=== PATIENT | male | born 1965 | race Caucasian/White ===

== ENCOUNTER 2017-07-08 19:28 | Outpatient (CLI) | payer OTHER | END 2017-07-08 19:29 | disposition critical access hospital (66) | LOC: EMS 19:28 | PROVIDERS: ATTEND Surgery | DX: R55 Syncope and collapse (principal); R53.1 Weakness; R61 Generalized hyperhidrosis | CPT/HCPCS: A0425; A0427 ==

== ENCOUNTER 2017-07-08 19:47 | Emergency (ER) | payer OTHER ==
--- NOTE | 2017-07-08 21:02 | ED Physician Documentation ---
PD HPI Fall - Stated complaint Stated Complaint: FALL - Chief complaint Chief Complaint: General - History obtained from History obtained from: Patient PD PAST MEDICAL HISTORY - Past Medical History Past Medical History: Yes Endocrine/Autoimmune: HyPOthyroidism - Past Surgical History Past Surgical History: Yes - Present Medications Home Medications: Ambulatory Orders Medication Instructions Recorded Confirmed Levothyroxine Sodium [Synthroid] 88 mcg PO DAILY 07/08/17 07/08/17 - Allergies Allergies/Adverse Reactions: Allergies Allergy/AdvReac Type Severity Reaction Status Date / Time No Known Drug Allergies Allergy Verified 07/08/17 19:55 - Social History Does the pt smoke?: No Smoking Status: Never smoker Does the pt have substance abuse?: No - Immunizations Immunizations are current?: Yes Results - Vitals Vitals: Vital Signs - 24 hr 07/08/17 19:52 Temperature 36.2 C L Heart Rate 74 Respiratory 18 Rate Blood Pressure 137/73 H O2 Saturation 100 Oxygen O2 Source Room air
[2017-07-08] MEDS ORDERED: SODIUM CHLORIDE 0.9% 1,000 ML IV ONE (21:32)
[2017-07-08] MEDS ORDERED: KETOROLAC 60 MG/2 ML VIAL IVP STA (21:32)
[2017-07-08] MEDS ORDERED: KETOROLAC 30 MG/ML VIAL ONE (21:43)
[2017-07-08 21:52] LABS: BASOPHILS # (AUTO) 0.1 10^3/uL (0.0-0.1); BASOPHILS % (AUTO) 0.9 %; EOSINOPHILS # (AUTO) 0.2 10^3/uL (0.0-0.7); EOSINOPHILS % (AUTO) 1.6 %; HGB - HEMOGLOBIN 15.6 g/dL (14.0-18.0); LYMPHOCYTES # (AUTO) 2.1 10^3/uL (1.5-3.5); LYMPHOCYTES % (AUTO) 16.1 %; MEAN CORPUSCULAR HEMOGLOBIN 30.4 pg (27.0-31.0); MEAN CORPUSCULAR HGB CONC 34.1 g/dL (32.0-36.0); MEAN CORPUSCULAR VOLUME 89.4 fL (80.0-94.0); MEAN PLATELET VOLUME 8.4 fL (7.4-11.4); MONOCYTES # (AUTO) 0.6 10^3/uL (0.0-1.0); MONOCYTES % (AUTO) 4.7 %; NEUTROPHILS # (AUTO) 10.2 10^3/uL (1.5-6.6); NEUTROPHILS % (AUTO) 76.7 %; RED BLOOD COUNT 5.14 10^6/uL (4.70-6.10); RED CELL DISTRIBUTION WIDTH 12.9 % (12.0-15.0); UNCORRECTED WHITE BLOOD COUNT 13.3 x10^3/uL; WHITE BLOOD COUNT 13.3 x10^3/uL (4.8-10.8)
[2017-07-08 22:03] LABS: ALBUMIN/GLOBULIN RATIO 1.3 (1.0-2.2); BILIRUBIN,TOTAL 0.6 mg/dL (0.2-1.0); CALCIUM 8.7 mg/dL (8.5-10.3); CREATININE 1.2 mg/dL (0.6-1.2); MAGNESIUM 2.3 mg/dL (1.7-2.8); POTASSIUM 3.6 mmol/L (3.5-5.0); TOTAL PROTEIN 7.5 g/dL (6.7-8.2)
[2017-07-08 22:27] VITALS: BP 119/79
--- NOTE | 2017-07-08 22:39 | ED Physician Documentation ---
PD HPI SYNCOPE - Stated complaint Stated Complaint: FALL - Chief complaint Chief Complaint: General - History obtained from History obtained from: Patient, EMS - History of Present Illness Witnessed: Unwitnessed Timing - onset: Today Duration: Unknown Preceding symptoms: Chest pain, Nausea / vomiting, Light headed, Other (left knee/thigh pain - he was at restaurant or such and felt pain medial thigh/knee feeling like muscle cramp. Has had that intermittently the past few weeks. He got up to go to the bathroom as he had to urinate as well. While urinating he felt lightheaded and weak. Washing hands he then next remembers awakening on the floor. He walked out back to friends and they said he looked pale. He had some feeling of pressure left breast area. EMS called. Normal ECG enroute. He had improved color enroute. Feeling okay on arrival except just generally tired. ) Associated symptoms: No: Incontinant of urine, Headache, Abdominal pain Contributing factors: Noxious stimulae (was having pain left thigh), Other (had just urinated). No: Recent med change, Decreased PO intake Injury occurred: No: Fell, Head injury, Neck injury Similar symptoms before: No diagnosis (has had intermittent pressure left chest nonexertional. He has not noted it with walking nor going up steps, but says he does not really exert himself nor exercise.) Recently seen: Not recently seen Review of Systems Constitutional: denies: Fever, Chills Nose: denies: Rhinorrhea / runny nose, Congestion Throat: denies: Sore throat Cardiac: denies: Palpitations, Pedal edema, Calf pain Respiratory: denies: Cough GI: denies: Abdominal Pain, Nausea, Vomiting, Diarrhea : denies: Dysuria, Frequency Skin: denies: Rash, Lesions Musculoskeletal: denies: Extremity swelling Neurologic: reports: Generalized weakness, Syncope. denies: Focal weakness, Numbness, Altered mental status, Headache, Head injury PD PAST MEDICAL HISTORY - Past Medical History Past Medical History: Yes Cardiovascular: None Respiratory: None Neuro: None Endocrine/Autoimmune: HyPOthyroidism - Past Surgical History Past Surgical History: Yes - Present Medications Home Medications: Ambulatory Orders Medication Instructions Recorded Confirmed Levothyroxine Sodium [Synthroid] 88 mcg PO DAILY 07/08/17 07/08/17 - Allergies Allergies/Adverse Reactions: Allergies Allergy/AdvReac Type Severity Reaction Status Date / Time No Known Drug Allergies Allergy Verified 07/08/17 19:55 - Social History Does the pt smoke?: No Smoking Status: Never smoker Does the pt have substance abuse?: No - Family History Family history: reports: Non contributory. denies: CAD, Sudden , Venous thromboembolism - Immunizations Immunizations are current?: Yes PD ED PE NORMAL - Vitals Vital signs reviewed: Yes - General General: Alert and oriented X 3, No acute distress, Well developed/nourished - HEENT HEENT: Atraumatic, Pharynx benign - Neck Neck: Supple, no meningeal sign, No adenopathy - Cardiac Cardiac: RRR, No murmur, Other (some mild chestwall tenderness left parasternal cartilage. No rash nor sores. ) - Respiratory Respiratory: Clear bilaterally - Abdomen Abdomen: Soft, Non tender - Back Back: No CVA TTP - Derm Derm: Normal color, Warm and dry - Extremities Extremities: No tenderness to palpate, Normal ROM s pain, No edema, No calf tenderness / cord, Other (left medial thigh and knee without tenderness in ED. Good ROM of the leg without pain. ) - Neuro Neuro: Alert and oriented X 3, No motor deficit, Normal speech - Psych Psych: Normal mood, Normal affect Results - Vitals Vitals: Vital Signs - 24 hr 07/08/17 07/08/17 07/08/17 19:52 22:25 22:49 Temperature 36.2 C L 36.2 C L Heart Rate 74 68 Respiratory 18 18 Rate Blood Pressure 137/73 H 119/79 O2 Saturation 100 98 07/08/17 22:50 Temperature Heart Rate 79 Respiratory 13 Rate Blood Pressure 119/79 O2 Saturation 98 Oxygen O2 Source Room air - EKG (time done) enroute by EMS Rhythm: NSR Gilbert: Normal Intervals: Normal ND QRS: Normal Ischemia: Normal ST segments. No: ST elevation c/w ischemia, ST depression - Labs Labs: Laboratory Tests 07/08/17 07/08/17 07/08/17 21:40 21:40 21:40 WBC 13.3 H RBC 5.14 Hgb 15.6 Hct 46.0 MCV 89.4 MCH 30.4 MCHC 34.1 RDW 12.9 Plt Count 227 MPV 8.4 Neut # 10.2 H Lymph # 2.1 [place] # 0.6 Eos # 0.2 Baso # 0.1 Absolute Nucleated RBC 0.00 Nucleated RBC % 0.0 Sodium 136 Potassium 3.6 Chloride 104 Carbon Dioxide 24 Anion Gap 8.0 BUN 19 Creatinine 1.2 Estimated GFR (MDRD) 63 L Glucose 119 H Calcium 8.7 Magnesium 2.3 Total Bilirubin 0.6 AST 20 ALT 23 Alkaline Phosphatase 38 L Troponin I < 0.04 Total Protein 7.5 Albumin 4.3 Globulin 3.2 Albumin/Globulin Ratio 1.3 Lipase 40 PD MEDICAL DECISION MAKING - ED course Complexity details: reviewed results, considered differential (the syncope seems related to the muscle cramp and then urinating, so presume vasovagal. No abd pain. Some chest discomfort with normal ECG, some chestwall tenderness, and negative labs. To follow up with PMD. Discussed with him potential stress testing through PCP. ), d/w patient Departure - Departure Disposition: Home, Self Care Clinical Impression: Leg cramp, Micturition syncope Episode of syncope Qualifiers: Syncope type: vasovagal syncope Qualified Code(s): R55 - Syncope and collapse Condition: Stable Record reviewed to determine appropriate education?: Yes Instructions: ED Syncope Vasovagal Follow-Up: NAM MARTÍNEZ [Primary Care Provider] - Comments: Drink lots of fluids. See how you feel over the next couple of days. I presume your fainting episode was related to a combination of the pain in her leg combined with going to the bathroom. There may be an element of under hydration. There is no signs of abnormal heart rhythm, electrolyte problems, heart attack, anemia, low blood sugar. Your heart rhythm has been normal here in the ER. Follow-up with your primary care if he ever recurrent episodes or symptoms are generally not feeling well over the next few days. Discharge Date/Time: 07/08/17 23:05
== END 2017-07-08 23:05 | disposition home or self-care (01) ==
LOC: ED 19:47
DX: R55 Syncope and collapse (principal); R25.2 Cramp and spasm; E03.9 Hypothyroidism, unspecified
CPT/HCPCS: 36415; 80053; 83690; 83735; 84484; 85025; 96361; 96374; 99284

== ENCOUNTER 2023-10-04 06:40 | Outpatient (CLI) | payer OTHER ==
--- NOTE | 2023-10-07 12:22 | MRI Report ---
PROCEDURE: SHOULDER WO - RT INDICATIONS: RIGHT SHOULDER PAIN TECHNIQUE: Noncontrast oblique coronal T2 fast spin echo with fat saturation, oblique sagittal T1 spin echo and T2 fast spin echo with fat saturation, axial T1 spin echo and T2 fast spin echo with fat saturation a nd 3-D gradient echo through the shoulder. COMPARISON: None. FINDINGS: Image quality: Excellent. Rotator cuff: There is full-thickness tearing of the distal supraspinatus tendon and the anterior fi bers infraspinatus tendon approximately 0.9 cm from the distal insertion measuring 1.5 cm in anteropo sterior dimension with proximal tendon retraction measuring up to 1.3 cm. A few attenuated bursal kei face fibers remain in continuity for portions of the tear. The teres minor tendon is intact. There is moderate subscapularis tendinosis and low-grade partial intrasubstance tearing at the superior inser tion. There is no significant rotator cuff muscle atrophy. Bones and bursae: No acute trabecular bone injury or fracture. Chronic traction cystic changes are se en at the posterosuperior humeral head and lesser tuberosity near the rotator cuff tendon insertions. Mild degenerative spurring in the glenoid rim. Moderate degenerative changes at the acromioclavicula r joint with subchondral cystic changes and edema and marginal spur formation. There is a small amoun t of fluid in the subacromial/subdeltoid bursa, which communicates with a small glenohumeral effusion . Capsule and soft tissues: There is nondisplaced tearing of the superior labrum extending into the an terosuperior and posterosuperior labrum, which may be chronic. Proximal biceps long tendon demonstrat es mild tendinosis. There is partial effacement of the normal fat signal in the rotator normal. Gleno humeral ligaments appear to be intact. IMPRESSION: 1.Full-thickness tearing of the distal supraspinatus tendon and the anterior fibers infraspinatus ten don approximately 0.9 cm from the distal insertion measuring 1.5 cm with proximal tendon retraction m easuring up to 1.3 cm. 2.Moderate subscapularis tendinosis and low-grade partial intrasubstance tearing at the superior inse rtion. 3.Mild proximal biceps long head tendinosis. 4.Nondisplaced tearing of the superior labrum extending into the anterosuperior and posterosuperior l abrum, which is likely chronic. 5.Moderate acromioclavicular joint osteoarthrosis. 6.Small glenohumeral effusion communicates with the subacromial/subdeltoid bursa. Reviewed by: Trevor Guevara MD on 10/07/2023 12:20 PM PST Approved by: Trevor Guevara MD on 10/07/2023 12:20 PM PST Station ID: [id number]
== END 2023-10-04 06:41 | disposition home or self-care (01) ==
LOC: DI 06:40
PROVIDERS: ATTEND Nurse Practitioner Family
DX: M75.121 Complete rotator cuff tear or rupture of right shoulder, not specified as traumatic (principal); M19.011 Primary osteoarthritis, right shoulder; M25.411 Effusion, right shoulder; M67.921 Unspecified disorder of synovium and tendon, right upper arm; S43.431A Superior glenoid labrum lesion of right shoulder, initial encounter

== ENCOUNTER 2024-01-21 09:49 | Outpatient (CLI) | payer OTHER ==
--- NOTE | 2024-01-22 08:13 | MRI Report ---
PROCEDURE: Foot LT WO INDICATIONS: L FOOT PAIN Additional information: Per imaging order, 58-year-old male with left foot pain ongoing for 2 months. Recent x-ray showed a potential 3rd metatarsal stress fracture as well as osteoarthritis. TECHNIQUE: Noncontrast sagittal T1 spin echo and T2 fast spin echo with fat saturation, long-axis T1 spin echo a nd T2 fast spin echo with fat saturation, short-axis proton density fast spin echo and T2 fast spin e cho with fat saturation through the forefoot. COMPARISON: No previous study is available for comparison. FINDINGS: Image quality: Excellent. Bones and joints: Focal susceptibility artifact is seen in the region of the 1st distal phalanx with associated metal artifact obscures adjacent structures and inhomogeneous fat suppression. No bone mar row contusions or metatarsal stress fractures. Mild hallux valgus. Mild to moderate degenerative becky nges are seen at the 1st metatarsophalangeal joint and metatarsal sesamoid articulations with mild kaminski bchondral edema at the 1st metatarsal head. There is slight lateral subluxation of the hallux sesamoi ds. Scattered degenerative changes are seen at the interphalangeal joints of the toes. No intraosseou s lesions. Soft tissues: Mild tendinosis of the extensor hallucis longus tendon. The remaining visualized flexo r and extensor tendons appear intact, without tenosynovitis. The visualized plantar foot muscles dem onstrate normal signal and bulk. Intermediate signal intensity is seen in the interspace between the 3rd and 4th metatarsal heads measuring approximately 12 x 4 x 11 mm. Sagittal images demonstrate no evidence for plantar plate tears. IMPRESSION: 1.No acute fracture or acute stress reaction. 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 3.Mild to moderate 1st metatarsophalangeal joint and metatarsal sesamoid osteoarthrosis with subchond ral edema. Mild hallux valgus. 4.Mild extensor hallucis longus tendinosis. Reviewed by: Trevor Guevara MD on 01/22/2024 8:11 AM PDT Approved by: Trevor Guevara MD on 01/22/2024 8:11 AM PDT Station ID: [id number]
== END 2024-01-21 09:50 | disposition home or self-care (01) ==
LOC: DI 09:49
PROVIDERS: ATTEND Nurse Practitioner Family
DX: M19.072 Primary osteoarthritis, left ankle and foot (principal); M20.12 Hallux valgus (acquired), left foot; M67.972 Unspecified disorder of synovium and tendon, left ankle and foot

== ENCOUNTER 2024-02-14 07:58 | Outpatient (CLI) | payer OTHER ==
[2024-02-14] MEDS ORDERED: GADOTERATE MEGLUMINE 10 MMOL/20 ML VIAL ONE (10:08)
[2024-02-14] MEDS: GADOTERATE MEGLUMINE 10 MMOL/20 ML VIAL IVP ONE (11:15)
--- NOTE | 2024-02-19 12:46 | MRI Report ---
PROCEDURE: Pelvis W/WO INDICATIONS: ELEVATED PSA CONTRAST: CLARISCAN 18.2 ML TECHNIQUE: Coronal ultra fast SE, axial T1 FSE with fat saturation, 3-plane nonbreath-hold T2 FSE. After the ad ministration of contrast, dynamic axial, delayed axial and coronal ultra fast GE or 2-D spoiled GE wi th fat saturation through the pelvis. Optional diffusion weighted imaging and ADC may be performed. COMPARISON: None. FINDINGS: Image quality: Diffusion weighted and dynamic contrast enhanced images are diagnostic. Prostate: Gland size is 5.3 x 5 x 4.5 cm; ellipsoid gland volume is 62 mL. PSA Density: 0.09 Transitional zone heterogenous nodules are present, either well encapsulated or mostly encapsulated, compatible with PI-RADS 1 or 2 likely BPH nodules. This is the predominant abnormality. Mildly T2 hypointense heterogenous striated appearance of the peripheral zone is commonly seen with c urrent or prior prostatitis, PI-RADS 2. Symmetric appearing enhancement is seen in the apex periphera l zone, associated with mild homogenous T2 signal abnormality. PI RADS 2 These findings can obscure small cancers. Genitourinary system: Mildly trabeculated bladder likely sequela of chronic obstruction Bowel and peritoneum: No pathologic ascites. No drainable abscess. Colonic diverticula. No small bow el junction or lower abdomen Nodes and vessels: No pathologic lymph nodes by size criteria. No aneurysmal vessel identified. Soft tissues: Unremarkable Bones: Degenerative changes without acute or suspicious osseous finding. IMPRESSION: PI RADS 2: The predominant abnormality is prostatomegaly and BPH. Possible more focal prostatitis becky nges are seen at the apex peripheral zone. Consider continued laboratory and imaging follow-up for kaminski rveillance. Other findings above. Reviewed by: Eriberto Natarajan MD on 02/19/2024 12:45 PM PDT Approved by: Eriberto Natarajan MD on 02/19/2024 12:45 PM PDT Station ID: [id number]
== END 2024-02-14 07:59 | disposition home or self-care (01) ==
LOC: LAB 07:58
PROVIDERS: ATTEND Urology
DX: R97.20 Elevated prostate specific antigen [PSA] (principal); N40.0 Benign prostatic hyperplasia without lower urinary tract symptoms; K57.30 Diverticulosis of large intestine without perforation or abscess without bleeding
CPT/HCPCS: 36415; 72197; 82565; A9575